=== PATIENT | male | born 1975 | race African-American/Black ===

== ENCOUNTER 2022-08-16 15:19 | Emergency (ER) | payer MEDICAID, MEDICARE ==
[~2022-08-16] VITALS: Ht 172.7 cm; Wt 73.0 kg
[2022-08-16 15:22] VITALS: BP 120/73
== END 2022-08-16 17:52 | disposition home or self-care (01) ==
LOC: ER 15:19
DX: Z00.00 Encounter for general adult medical examination without abnormal findings (principal); F84.0 Autistic disorder; Z98.890 Other specified postprocedural states
CPT/HCPCS: 99283